=== PATIENT | female | born 2005 | race Two or more races ===

== ENCOUNTER 2025-02-13 09:08 | Outpatient (CLI) | payer OTHER | END 2025-02-13 09:11 | disposition home or self-care (01) | LOC: PRENATAL 09:08 | PROVIDERS: ATTEND Obstetrics & Gynecology Maternal & Fetal Medicine | DX: O36.80X0 Pregnancy with inconclusive fetal viability, not applicable or unspecified (principal); Z36.82 Encounter for antenatal screening for nuchal translucency; Z14.8 Genetic carrier of other disease; Z3A.14 14 weeks gestation of pregnancy ==

== ENCOUNTER 2025-03-27 15:18 | Outpatient (CLI) | payer OTHER | END 2025-03-27 15:19 | disposition home or self-care (01) | LOC: PRENATAL 15:18 | PROVIDERS: ATTEND Obstetrics & Gynecology Maternal & Fetal Medicine | DX: O44.00 Complete placenta previa NOS or without hemorrhage, unspecified trimester (principal); Z3A.20 20 weeks gestation of pregnancy ==

== ENCOUNTER → 2025-04-05 | Emergency (ER) | payer OTHER | END | disposition left against medical advice (07) | LOC: ER 13:15 | DX: Z53.21 Procedure and treatment not carried out due to patient leaving prior to being seen by health care provider (principal) ==

== ENCOUNTER 2025-05-11 17:17 | Outpatient (CLI) | payer OTHER ==
[2025-05-11 16:00] VITALS: BP 117/64
[2025-05-11] MEDS ORDERED: RINGERS SOLUTION,LACTATED 1,000 ML IV SCH (17:30)
[2025-05-11] MEDS ORDERED: PRENATAL CAPLE1 EAC1 PO (17:50)
[2025-05-11] MEDS ORDERED: FOLIC ACID20 MG PO (17:50)
[2025-05-11 19:15] VITALS: BP 119/66
[2025-05-11] MEDS ORDERED: CEFAZOLIN SODIUM 1,000 MG VIAL IV SCH (20:33)
[2025-05-11 22:45] VITALS: BP 119/66
== END 2025-05-11 22:45 | disposition home or self-care (01) ==
LOC: OBS/DEL 17:17 → LDR 17:45 → OBS/DEL 20:49
PROVIDERS: ATTEND Obstetrics & Gynecology
DX: O26.892 Other specified pregnancy related conditions, second trimester (principal); O36.8120 Decreased fetal movements, second trimester, not applicable or unspecified; O26.859 Spotting complicating pregnancy, unspecified trimester; Z3A.26 26 weeks gestation of pregnancy

== ENCOUNTER → 2025-05-11 | Emergency (ER) | payer OTHER ==
[~2025-05-11] VITALS: Ht 165.1 cm; Wt 52.6 kg
[~2025-05-11] MED LIST: FOLIC ACID20 MG PO; PRENATAL CAPLE1 EAC1 PO
[2025-05-11 15:20] LABS: BASO % 0.5 % (0.1-1.2); EOS # 0.05 (0.04-0.54); EOS % 0.6 % (0.7-7.0); HEMATOCRIT 29.2 % (34.1-44.9); HEMOGLOBIN 9.9 g/dL (11.2-15.7); LYMPH # 0.85 (1.18-3.74); LYMPH % 10.2 % (19.3-53.1); MEAN CORPUSCULAR HEMOGLOBIN 27.7 pg (25.6-32.2); MONO # 0.45 (0.24-0.82); MONO % 5.4 % (4.7-12.5); NEUT # 6.92 (1.56-6.13); NEUT % 82.7 % (34.0-71.1); PLATELET COUNT 374 K/uL (163-369); RED BLOOD COUNT 3.58 M/uL (3.93-5.22); RED CELL DISTRIBUTION WIDTH 13.4 % (11.6-14.4)
[2025-05-11 16:06] LABS: INR 0.98; PARTIAL THROMBOPLASTIN TIME 23.4 SECONDS (22.0-34.0); PROTHROMBIN TIME 10.7 SECONDS (9.0-11.5)
[2025-05-11 16:25] LABS: CALCIUM 8.5 mg/dL (8.5-10.1); CREATININE SERUM 0.38 mg/dL (0.55-1.02); GFR 215.9; POTASSIUM 3.91 mEq/L (3.5-5.1)
[2025-05-11 17:16] LABS: URINE APPEARANCE Cloudy; URINE BACTERIA 2904.4 uL (0.0-1933); URINE BILIRRUBIN Negative (NEGATIVE); URINE BLOOD Negative; URINE CAST 1.61 uL (0.0-1.40); URINE COLOR Yellow; URINE EPITHELIAL CELLS 102.9 uL (0.0-38.8); URINE GLUCOSE Negative (NEGATIVE); URINE KETONE Trace (NEGATIVE); URINE LEUKOCYTE Large; URINE NITRATE Negative; URINE PROTEIN Trace (NEGATIVE); URINE RBC 5.5 uL (0.0-20.8); URINE WBC 441.4 uL (0.0-23.2)
[2025-05-11 18:27] LABS: URINE CRYSTALS MODERATE /HPF
== END | disposition still patient (30) ==
LOC: ER 14:15
PROVIDERS: General Practice
DX: O26.899 Other specified pregnancy related conditions, unspecified trimester (principal)

== ENCOUNTER → 2025-06-21 11:46 | Outpatient (CLI) | payer OTHER | END | disposition home or self-care (01) | LOC: PRENATAL 11:46 | PROVIDERS: ATTEND Obstetrics & Gynecology Maternal & Fetal Medicine | DX: O26.849 Uterine size-date discrepancy, unspecified trimester (principal); O36.8199 Decreased fetal movements, unspecified trimester, other fetus; Z3A.33 33 weeks gestation of pregnancy ==

== ENCOUNTER 2025-08-06 13:30 | Inpatient (IN) | payer OTHER ==
[~2025-08-06] VITALS: Ht 165.1 cm; Wt 59.0 kg
[2025-08-07] MEDS ORDERED: AMPICILLIN SODIUM 2,000 MG VIAL ONE (10:38)
[2025-08-07 11:15] VITALS: BP 130/83
[2025-08-07] MEDS ORDERED: ERYTHROMYCIN BASE OPHT 1GM EACH TUBE OP ONE (11:20)
[2025-08-07] MEDS ORDERED: OXYTOCIN 20 UNITS/1000ML RL PIGGYBAG IV ONE (11:21)
[2025-08-07] MEDS ORDERED: LIDOCAINE HCL 1% 10ML VIAL ONE (11:21)
[2025-08-07] MEDS ORDERED: CHLORHEXIDINE GLUCONATE 120 ML BOTTLE TOP ONE (11:21)
[2025-08-07] MEDS ORDERED: AMPICILLIN SODIUM 2,000 MG VIAL IV ONE (11:30)
[2025-08-07] MEDS ORDERED: RINGERS SOLUTION,LACTATED 1,000 ML IV SCH (11:30)
[2025-08-07 11:35] LABS: BASO % 0.6 % (0.1-1.2); EOS # 0.02 (0.04-0.54); EOS % 0.2 % (0.7-7.0); LYMPH # 1.51 (1.18-3.74); LYMPH % 14.8 % (19.3-53.1); MEAN PLATELET VOLUME 10.80 fl (9.4-12.4); MONO # 0.80 (0.24-0.82); MONO % 7.9 % (4.7-12.5); NEUT # 7.70 (1.56-6.13); NEUT % 75.5 % (34.0-71.1)
[2025-08-07 11:42] LABS: RED CELL DISTRIBUTION WIDTH 16.1 % (11.6-14.4)
[2025-08-07 12:08] LABS: INR 0.96
[2025-08-07] MEDS ORDERED: OXYTOCIN 10 UNITS/ML VIAL ONE (12:30)
[2025-08-07 13:15] VITALS: BP 123/76
[2025-08-07 13:30] VITALS: BP 123/77
[2025-08-07 13:45] VITALS: BP 125/79
[2025-08-07] MEDS ORDERED: AMPICILLIN SODIUM 1,000 MG VIAL IV SCH (17:00)
[2025-08-07 18:07] LABS: BASO % 0.1 % (0.1-1.2); EOS # 0.00 (0.04-0.54); EOS % 0.0 % (0.7-7.0); LYMPH # 0.89 (1.18-3.74); LYMPH % 3.9 % (19.3-53.1); MEAN PLATELET VOLUME 10.30 fl (9.4-12.4); MONO # 0.71 (0.24-0.82); MONO % 3.1 % (4.7-12.5); NEUT # 21.27 (1.56-6.13); NEUT % 92.2 % (34.0-71.1); RED CELL DISTRIBUTION WIDTH 15.9 % (11.6-14.4)
[2025-08-07 19:00] VITALS: BP 128/84
[2025-08-08 00:38] VITALS: BP 120/78
[2025-08-08 08:56] VITALS: BP 136/87
[2025-08-08] MEDS ORDERED: PNV,CALCIUM 72/IRON/FOLIC ACID 1 TAB TABLET PO SCH (09:00)
[2025-08-08 18:11] VITALS: BP 131/82
[2025-08-09 08:00] VITALS: BP 127/76
== END 2025-08-09 14:25 | disposition home or self-care (01) | DRG 807 ==
LOC: OB/GYN 08-07 09:59 → LDR 08-07 09:59 → OB/GYN 08-07 12:29 → LDR 08-16 13:30
PROVIDERS: ADMIT Obstetrics & Gynecology; ATTEND Obstetrics & Gynecology
PROC: 10E0XZZ Delivery of Products of Conception, External Approach (ICD-10-PCS; principal; 2025-08-07)
PROC: 0KQM0ZZ Repair Perineum Muscle, Open Approach (ICD-10-PCS; 2025-08-07)
PROC: 4A1HXCZ Monitoring of Products of Conception, Cardiac Rate, External Approach (ICD-10-PCS; 2025-08-07)
DX: O70.1 Second degree perineal laceration during delivery (principal); Z37.0 Single live birth; Z3A.38 38 weeks gestation of pregnancy